=== PATIENT | male | born 1985 | race Caucasian/White ===

== ENCOUNTER 2016-07-14 11:28 | Emergency (ER) | payer OTHER ==
--- NOTE | 2016-07-14 13:17 | ED NURSING NOTES ---
Clinical Report - Nurses [facility] [place] [address] 07/14/2016 11:30 Patient: PAULINA FRANKS TRIAGE Triage time 11:39. Acuity: LEVEL 3. Chief Complaint: PAIN WITH URINATION and (right flank pain). --11:42 Meche Osman R.N. 11:39 07/14/16. BP: 136/87. HR: 87. RR: 20. O2 saturation: 98%. Temp: 98.3 F. Pain level now: 02/02. --11:42 Meche Osman R.N. Weight: 117.9 kg stated. Height/Length: 73 inches Per Patient. BMI: 34.3. --11:42 Meche Osman R.N. Medications None. --11:41 Meche Osman R.N. Allergies No Known Drug Allergy. --11:41 Meche Osman R.N. History Primary physician (ashley). ( sometimes stings with urination. Hx of kidey stones). PAST MEDICAL HX: ( kidney stone). SOCIAL HX: Smoker- current status unknown (quit 3 months ago). No alcohol use or drug use. FALL RISK ASSESSMENT: Fall risk assessment completed. No fall risk identified. NUTRITIONAL RISK ASSESSMENT: The nutritional risk assessment revealed no deficiencies. FUNCTIONAL ASSESSMENT: Functional assessment: no impairments noted. LEARNING NEEDS ASSESSMENT: The learning needs assessment revealed no barriers. SKIN INTEGRITY ASSESSMENT: Skin integrity risk assessment completed. No skin integrity risk identified. --11:42 Meche Osman R.N. PROBLEMS: Kidney stones. --11:41 Meche Osman R.N. Interventions ID band on patient. To treatment room. --11:42 Meche Osman R.N. PHYSICAL ASSESSMENT GENERAL / NEURO / PSYCH: Alert. Oriented X 4. Appears in no acute distress. RESPIRATORY: Respirations not labored. CVS: Capillary refill less than 2 seconds. GI / : Abdomen soft and nontender. Bowel sounds within normal limits. SKIN: Skin is warm and dry. --12:23 Meche Osman R.N. NURSING PROGRESS NOTES Oxygen administered. Reassurance given. Patient identifiers checked. Call light placed in reach. Side rails up. Bed placed in lowest position. ( pt resting quietly, states pain is subsiding. No needs at this time. call light within reach.). --12:22 Meche Osman R.N. 12:21 07/14/16. BP: 142/90. HR: 81. RR: 18. O2 saturation: 99%. Pain level now: 11/02. --12:22 Meche Osman R.N. 11:59 07/14/2016 Site #1 started via IV in the left antecubital space with an 20g angiocath; one attempt. Saline lock flushed with 10 mL saline. --12:24 Meche Osman R.N. 12:00 07/14/2016 Zofran (Ondansetron HCl) IVP 4 mg given over 2 minute(s) via site #1. --12:24 Meche Osman R.N. 12:00 07/14/2016 Toradol IVP 30 mg given over 5 minute(s) via site #1. --12:25 Meche Osman R.N. 13:39 07/14/2016 Dilaudid (HYDROmorphone HCl PF) IVP 1 mg given over 2 minute(s) via site #1. Allergies verified, confirmed 5 rights and sedative warning given to the patient. IV patency established. IV site checked: no pain, redness, or swelling. IV flushed thoroughly pre- and post-medication administration (pt advised he would need a ride home and would not be able to drive.). --13:40 Meche Osman R.N. 12:30- pt resting quietly. call light in reach. --13:43 Meche Osman R.N. 13:43 07/14/16. BP: 113/72. HR: 79. RR: 16. Pain level now: 01/02. --13:44 Meche Osman R.N. ( pt reports pain is returning. New order given, dilaudid 1 mg IV). --13:44 Meche Osman R.N. 13:50 07/14/2016 Site #1 removed upon discharge. Pressure dressing applied. --13:50 Meche Osman R.N. DISPOSITION / DISCHARGE Condition at departure: improved. No learning barriers present. Reviewed medication(s) side effects, precautions, dosing and course information. Prescription(s) given to the patient. Work note given. Patient verbalized understanding. Written instructions provided in Indonesian. The patient was discharged home and accompanied by display card writer. He left the Emergency Department ambulatory and via private vehicle. Cpht driving. Medication list reviewed and validated. --14:21 Lee nAn Green R.N. 14:20 07/14/16. BP: 120/79. HR: 78. RR: 20. O2 saturation: 100%. Temp: deferred. Pain level now: 10/03. 13:43 07/14/16. BP: 113/72. HR: 79. RR: 16. Pain level now: 01/02. 12:21 07/14/16. BP: 142/90. HR: 81. RR: 18. O2 saturation: 99%. Pain level now: 11/02. 11:39 07/14/16. BP: 136/87. HR: 87. RR: 20. O2 saturation: 98%. Temp: 98.3 F. Pain level now: 02/02. --14:21 Lee Ann Green R.N. Locked/Released at 07/14/2016 14:22 by Lee Ann Green R.N.
--- NOTE | 2016-07-14 13:17 | ED NURSING NOTES ---
Clinical Report - Nurses [facility] [place] [address] 07/14/2016 11:30 Patient: PAULINA FRANKS TRIAGE Triage time 11:39. Acuity: LEVEL 3. Chief Complaint: PAIN WITH URINATION and (right flank pain). --11:42 Meche Osman R.N. 11:39 07/14/16. BP: 136/87. HR: 87. RR: 20. O2 saturation: 98%. Temp: 98.3 F. Pain level now: 02/02. --11:42 Meche Osman R.N. Weight: 117.9 kg stated. Height/Length: 73 inches Per Patient. BMI: 34.3. --11:42 Meche Osman R.N. Medications None. --11:41 Meche Osman R.N. Allergies No Known Drug Allergy. --11:41 Meche Osman R.N. History Primary physician (ashley). ( sometimes stings with urination. Hx of kidey stones). PAST MEDICAL HX: ( kidney stone). SOCIAL HX: Smoker- current status unknown (quit 3 months ago). No alcohol use or drug use. FALL RISK ASSESSMENT: Fall risk assessment completed. No fall risk identified. NUTRITIONAL RISK ASSESSMENT: The nutritional risk assessment revealed no deficiencies. FUNCTIONAL ASSESSMENT: Functional assessment: no impairments noted. LEARNING NEEDS ASSESSMENT: The learning needs assessment revealed no barriers. SKIN INTEGRITY ASSESSMENT: Skin integrity risk assessment completed. No skin integrity risk identified. --11:42 Meche Osman R.N. PROBLEMS: Kidney stones. --11:41 Meche Osman R.N. Interventions ID band on patient. To treatment room. --11:42 Meche Osman R.N. PHYSICAL ASSESSMENT GENERAL / NEURO / PSYCH: Alert. Oriented X 4. Appears in no acute distress. RESPIRATORY: Respirations not labored. CVS: Capillary refill less than 2 seconds. GI / : Abdomen soft and nontender. Bowel sounds within normal limits. SKIN: Skin is warm and dry. --12:23 Meche Osman R.N. NURSING PROGRESS NOTES Oxygen administered. Reassurance given. Patient identifiers checked. Call light placed in reach. Side rails up. Bed placed in lowest position. ( pt resting quietly, states pain is subsiding. No needs at this time. call light within reach.). --12:22 Meche Osman R.N. 12:21 07/14/16. BP: 142/90. HR: 81. RR: 18. O2 saturation: 99%. Pain level now: 11/02. --12:22 Meche Osman R.N. 11:59 07/14/2016 Site #1 started via IV in the left antecubital space with an 20g angiocath; one attempt. Saline lock flushed with 10 mL saline. --12:24 Meche Osman R.N. 12:00 07/14/2016 Zofran (Ondansetron HCl) IVP 4 mg given over 2 minute(s) via site #1. --12:24 Meche Osman R.N. 12:00 07/14/2016 Toradol IVP 30 mg given over 5 minute(s) via site #1. --12:25 Meche Osman R.N. 13:39 07/14/2016 Dilaudid (HYDROmorphone HCl PF) IVP 1 mg given over 2 minute(s) via site #1. Allergies verified, confirmed 5 rights and sedative warning given to the patient. IV patency established. IV site checked: no pain, redness, or swelling. IV flushed thoroughly pre- and post-medication administration (pt advised he would need a ride home and would not be able to drive.). --13:40 Meche Osman R.N. 12:30- pt resting quietly. call light in reach. --13:43 Meche Osman R.N. 13:43 07/14/16. BP: 113/72. HR: 79. RR: 16. Pain level now: 01/02. --13:44 Meche Osman R.N. ( pt reports pain is returning. New order given, dilaudid 1 mg IV). --13:44 Meche Osman R.N. 13:50 07/14/2016 Site #1 removed upon discharge. Pressure dressing applied. --13:50 Meche Osman R.N. DISPOSITION / DISCHARGE Condition at departure: improved. No learning barriers present. Reviewed medication(s) side effects, precautions, dosing and course information. Prescription(s) given to the patient. Work note given. Patient verbalized understanding. Written instructions provided in Urdu. The patient was discharged home and accompanied by glass inspector. He left the Emergency Department ambulatory and via private vehicle. Scientific Programmer Analyst driving. Medication list reviewed and validated. --14:21 Lee Ann Green R.N. 14:20 07/14/16. BP: 120/79. HR: 78. RR: 20. O2 saturation: 100%. Temp: deferred. Pain level now: 10/03. 13:43 07/14/16. BP: 113/72. HR: 79. RR: 16. Pain level now: 01/02. 12:21 07/14/16. BP: 142/90. HR: 81. RR: 18. O2 saturation: 99%. Pain level now: 11/02. 11:39 07/14/16. BP: 136/87. HR: 87. RR: 20. O2 saturation: 98%. Temp: 98.3 F. Pain level now: 02/02. --14:21 Lee Ann Green R.N. Locked/Released at 07/14/2016 14:22 by Lee Ann Green R.N.
--- NOTE | 2016-07-14 13:17 | ED ORDER SUMMARY ---
..... Patient: PAULINA FRANKS OrderSheet [facility] VisitID: [id number] [place] [address] 31y, M Registration Date/Time: 07/14/2016 ORDER SHEET Weight: 117.9 kg (stated) Allergies: No Known Drug Allergy GENERAL ORDERS: UA-Culture if indicated Urgent (11:38 07/14/2016 SStone R.N. per protocol) (Ack 11:45 LTapper) (14:21 SRoberts R.N.) Urine Drug Screen Urgent (11:44 07/14/2016 [facility]) (Ack 11:50 LTapper) (14:21 SRoberts R.N.) CBC wo Diff Urgent (11:44 07/14/2016 [facility]) (Ack 11:50 LTapper) (14:21 SRoberts R.N.) CMP Urgent (11:44 07/14/2016 [facility]) (Ack 11:50 LTapper) (14:21 SRoberts R.N.) MEDICATION ORDERS: IV FLUIDS: IV NS : initial bolus 1000 mL (1000 mL/hr), then 500 mL/hr for X2 (NOW) (11:44 07/14/2016 [facility]) (Ack 12:15 SStone R.N.) Zofran IV 4 mg (NOW) (12:23 07/14/2016 SStone R.N. verbal order read back to [facility]) (12:24 SStone R.N.) Toradol IV 30 mg (NOW) (12:23 07/14/2016 SStone R.N. verbal order read back to [facility]) (12:25 SStone R.N.) Dilaudid IV 1 mg (NOW) (13:34 07/14/2016 [facility]) (13:40 SStone R.N.) ORDER SHEET NOTES: [Electronically signed by Lee Ann Green R.N. (14:22 07/14/2016)] [Electronically signed by Ahmet Pak DO (11:08 07/15/2016)] [Electronically locked/signed by Lee Ann Green R.N. (14:22 07/14/2016)]
--- NOTE | 2016-07-14 13:17 | ED ORDER SUMMARY ---
..... Patient: PAULINA FRANKS OrderSheet [facility] VisitID: [id number] [place] [address] 31y, M Registration Date/Time: 07/14/2016 ORDER SHEET Weight: 117.9 kg (stated) Allergies: No Known Drug Allergy GENERAL ORDERS: UA-Culture if indicated Urgent (11:38 07/14/2016 SStone R.N. per protocol) (Ack 11:45 LTapper) (14:21 SRoberts R.N.) Urine Drug Screen Urgent (11:44 07/14/2016 [facility]) (Ack 11:50 LTapper) (14:21 SRoberts R.N.) CBC wo Diff Urgent (11:44 07/14/2016 [facility]) (Ack 11:50 LTapper) (14:21 SRoberts R.N.) CMP Urgent (11:44 07/14/2016 [facility]) (Ack 11:50 LTapper) (14:21 SRoberts R.N.) MEDICATION ORDERS: IV FLUIDS: IV NS : initial bolus 1000 mL (1000 mL/hr), then 500 mL/hr for X2 (NOW) (11:44 07/14/2016 [facility]) (Ack 12:15 SStone R.N.) Zofran IV 4 mg (NOW) (12:23 07/14/2016 SStone R.N. verbal order read back to [facility]) (12:24 SStone R.N.) Toradol IV 30 mg (NOW) (12:23 07/14/2016 SStone R.N. verbal order read back to [facility]) (12:25 SStone R.N.) Dilaudid IV 1 mg (NOW) (13:34 07/14/2016 [facility]) (13:40 SStone R.N.) ORDER SHEET NOTES: [Electronically signed by Lee Ann Green R.N. (14:22 07/14/2016)] [Electronically signed by Ahmet Pak DO (11:08 07/15/2016)] [Electronically locked/signed by Lee Ann Green R.N. (14:22 07/14/2016)]
--- NOTE | 2016-07-14 13:17 | ED CLINICAL REPORT ---
Clinical Report - Physicians/Mid Levels [facility] [address] [place] [place] [address] 07/14/2016 11:30 Patient: PAULINA FRANKS Time Seen: 11:44. Arrived- By private vehicle. Historian- patient. HISTORY OF PRESENT ILLNESS Chief Complaint: FLANK PAIN. At its maximum, severity described as severe. When seen in the E.D., severity described as moderate. This started yesterday and is still present. It was gradual in onset and has been waxing/waning. It is described as "pain" and sharp and it is described as located in the right flank and radiating to the right lower quadrant of the abdomen, right pelvis, right groin and right testicle. The patient has had nausea. No vomiting or diarrhea. Similar symptoms previously: Several times. Diagnosis: kidney stone. Recent medical care: Not recently seen/assessed. REVIEW OF SYSTEMS No constipation, black stools, hematemesis, fever or headache. No sore throat, chest pain or difficulty breathing. He has had pain on urination and back pain (right flank). The patient has had urinary frequency. All systems otherwise negative, except as recorded above. PAST HISTORY See nurses notes. Has had urinary calculi. PCP: Dr Brantley. No history of hypertension or diabetes mellitus. Surgeries: No history of previous surgery. SOCIAL HISTORY Former smoker, end date 03/2016. No alcohol use or drug use. ADDITIONAL NOTES The nursing notes have been reviewed. PHYSICAL EXAM Vital Signs: 07/14/2016 11:39 BP: 136/87. HR: 87. RR: 20. O2 saturation: 98%. Temp: 98.3 F. Pain level now: 8/10. Appearance: Alert. Oriented X3. Patient in moderate distress. Eyes: Eyes normal inspection. No scleral icterus or pale conjunctivae. ENT: Pharynx normal. No pharyngeal erythema or tonsillar exudate. The mucous membranes are not dry. Neck: Normal inspection. Neck supple. CVS: Normal heart rate and rhythm. Heart sounds normal. Pulses normal. Respiratory: No respiratory distress. Breath sounds normal. Abdomen: Soft and nontender. No organomegaly. No mass. Back: Normal inspection. Mild CVA tenderness on the right. : Normal genitalia. Testes descended. Mild tenderness of the right testicle and left testicle. No scrotal swelling. Skin: Skin warm and dry. Normal skin color. No rash. Normal skin turgor. Extremities: Extremities exhibit normal ROM. No lower extremity edema. Neuro: Oriented X 3. No motor deficit. No sensory deficit. LABS, X-RAYS, AND EKG Laboratory Tests: UA-Culture if indicated: (YURI: 07/14/2016 11:45) ( MegRcvd 07/14/2016 12:08) Final results Test Result Flag Units (Reference) URINE COLOR YELLOW URINE APPEARANCE SL CLOUDY URINE GLUCOSE NEGATIVE (NEGATIVE) URINE BILIRUBIN NEGATIVE (NEGATIVE) URINE KETONE NEGATIVE (NEGATIVE) URINE SPECIFIC GRAVITY 1.015 (1.010-1.030) URINE PH 7.0 (5.0-8.0) URINE PROTEIN NEGATIVE (NEGATIVE) URINE UROBILINOGEN 0.2 EU/dL (0.2-1.0) URINE NITRITE NEGATIVE (NEGATIVE) URINE BLOOD 3+ (NEGATIVE) URINE LEUK ESTERASE NEGATIVE (NEGATIVE) URINE RBC >100 rbc/hpf (0-1) URINE WBC 0-1 wbc/hpf (0-1) URINE EPITHELIAL CELLS RARE EPI/hpf (0-5) URINE BACTERIA NONE SEEN (NONE SEEN) URINE COMMENT CULT NOT INDICATED URINE CULTURES ARE SET-UP BASED ON THE FOLLOWING CRITERIA:POSITIVE NITRITEPOSITIVE LEUKOCYTE ESTERASEGREATER THAN 10 WHITE BLOOD CELLSMODERATE (2+) OR GREATER BACTERIA CBC wo Diff: (YURI: 07/14/2016 11:55) ( [facility] 07/14/2016 12:04) Final results Test Result Flag Units (Reference) WHITE BLOOD COUNT NO REFLEX 7.7 K/uL (4.5-11.5) RED BLOOD COUNT 5.31 M/uL (4.50-5.90) HEMOGLOBIN 15.9 gm/dL (13.5-17.5) HEMATOCRIT 48.1 % (41.0-53.0) MEAN CELL VOLUME 91 fL (80-100) MEAN CORPUSCULAR HGB 30 pg (26-34) MEAN CORPUSCULAR HGB CONC 33 g/dL (31-37) RED CELL DISTRIBUTION WIDTH 12.9 % (11.6-14.8) PLATELET COUNT 224 K/uL (150-400) Urine Drug Screen: (YURI: 07/14/2016 11:45) ( MsgRcvd 07/14/2016 13:13) Final results Test Result Flag Units (Reference) AMPHETAMINE/METHAMPHETAMINE NEGATIVE (NEGATIVE) BARBITURATE NEGATIVE (NEGATIVE) BENZODIAZEPINE NEGATIVE (NEGATIVE) CANNABINOID POSITIVE H (NEGATIVE) COCAINE NEGATIVE (NEGATIVE) ECSTASY NEGATIVE (NEGATIVE) METHADONE NEGATIVE (NEGATIVE) OPIATE NEGATIVE (NEGATIVE) FAXED This is a corrected result 07/14/16 1313:OPI previously reported as: NEGATIVEThe urine drug screen is a qualitative screening test fordrug overdose and abuse. All screen results should beconsidered as presumptive.Drugs screened for are as follows:BenzodiazepinesCocaineAmphetamines/MetamphetaminesTHC (Tetrahydrocannabinol)OpiatesBarbituratesEcstasyMethadonePositive results are unconfirmed. For confirmation, notifythe lab for the specimen to be sent to the reference lab.All confirmations must be performed by a differentmethodology.The ingestion of natural herbal and plant productscontaining Ephedra/Ephedra metabolites can produce in urineone or more substances capable of cross reacting withamphetamine/methamphetamine immunoassays. These testsprovide a preliminary result only. A more specificalternative chemical method must be used to obtain aconfirmed analytical result. CMP: (YURI: 07/14/2016 11:55) ( MsgRcvd 07/14/2016 12:21) Final results Test Result Flag Units (Reference) GLUCOSE 102 mg/dL (70-110) BUN 15 mg/dL (7-18) CREATININE 0.9 mg/dL (0.6-1.3) Estimated GFR >60 mL/min Estimated GFR- >60 mL/min Note: Persistent reduction over 3 months in eGFR<60 mL/min/1.73 m2 defines CKD. Patients with eGFR values>=60 mL/min/1.73 m2 may also have CKD if evidence ofpersistent proteinuria. Additional information may be foundat www.kidney.org. SODIUM 141 mmol/L (136-145) POTASSIUM 4.3 mmol/L (3.5-5.1) CHLORIDE 104 mmol/L (98-107) CARBON DIOXIDE 30 mmol/L (21-32) CALCIUM 8.7 mg/dL (8.5-10.1) TOTAL PROTEIN 7.5 g/dL (6.4-8.2) ALBUMIN 4.4 g/dL (3.3-5.0) BILIRUBIN, TOTAL 0.6 mg/dL (0.0-1.0) ALKALINE PHOSPHATASE 61 U/L (46-116) AST (SGOT) 50 H U/L (15-37) ALT (SGPT) 151 H U/L (12-78) . Pulse Oximetry: 07/14/2016 14:20 O2 saturation: 100%. (FIO2 - room air). Interpretation: normal. PROGRESS AND PROCEDURES Course of Care: Normal Saline 1 liter IVPB given. Toradol 30 mg IVP given. Zofran 4 mg IVP given. Patient is stable. Physical exam findings are improved. Symptoms much better. All c/w ureterolithiasis. I will hold CT per Choosing Wisely guidelines. Patient/family counseled. Disposition: Discharged. Condition: stable and improved. CLINICAL IMPRESSION Ureterolithiasis (single stone) in the right ureter with renal colic. No acute pyelonephritis. Occasional substance abuse- marijuana. No intoxication, hallucinations, anxiety or drug induced mood disorder. Abnormal liver function test: AST/SGOT and ALT/SGPT (mild elevation). Moderate obesity (BMI 30.0 - 34.9) due to excess calories. INSTRUCTIONS Do not work for three days. Drink plenty of fluids. No alcohol until released. Warnings: Further evaluation is necessary in order to recheck abnormal lab, conduct further tests and assess the possibility of serious illness. It is very important to follow up with a physician. SEDATIVE MEDICATION: You were given sedative medication during your visit. Do not drive or operate dangerous machinery. CONTROLLED SUBSTANCE WARNINGS. GENERAL WARNINGS: Return or contact your physician immediately if your condition worsens or changes unexpectedly, if not improving as expected, or if other problems arise. Prescription Medications: Zofran (orally disintegrating tablets) 4 mg: take 1-2 orally every 8 hours as needed for nausea and vomiting. Dispense ten (10). No refill. Substitution is permissible. Oxycodone/APAP 5 mg/325 mg: take 1 tablet orally every 6 hours as needed for pain. Dispense fifteen (15). No refills. Flomax 0.4 mg: take 1 orally every 24 hours. Dispense fifteen (15). No refills. Substitution is permissible. Follow-up: Follow up with your doctor tomorrow. Follow up with a urologist- as recommended by your primary care physician- in about two days. (Electronically signed by Ahmet Pak DO 07/15/2016 11:08)
--- NOTE | 2016-07-15 11:09 | ED DISCHARGE INSTRUCTIONS ---
Patient: PAULINA FRANKS General Instructions [facility] VisitID: [id number] [place] [address] 31y, M Registration Date/Time: 07/14/2016 Ureterolithiasis (single stone) in the right ureter with renal colic. No acute pyelonephritis. Occasional substance abuse- marijuana. No intoxication, hallucinations, anxiety or drug induced mood disorder. Abnormal liver function test: AST/SGOT and ALT/SGPT (mild elevation). Moderate obesity (BMI 30.0 - 34.9) due to excess calories. INSTRUCTIONS Do not work for three days. Drink plenty of fluids. No alcohol until released. Warnings: Further evaluation is necessary in order to recheck abnormal lab, conduct further tests and assess the possibility of serious illness. It is very important to follow up with a physician. SEDATIVE MEDICATION: You were given sedative medication during your visit. Do not drive or operate dangerous machinery. CONTROLLED SUBSTANCE WARNINGS. GENERAL WARNINGS: Return or contact your physician immediately if your condition worsens or changes unexpectedly, if not improving as expected, or if other problems arise. Prescription Medications: Zofran (orally disintegrating tablets) 4 mg: take 1-2 orally every 8 hours as needed for nausea and vomiting. Dispense ten (10). No refill. Substitution is permissible. Oxycodone/APAP 5 mg/325 mg: take 1 tablet orally every 6 hours as needed for pain. Dispense fifteen (15). No refills. Flomax 0.4 mg: take 1 orally every 24 hours. Dispense fifteen (15). No refills. Substitution is permissible. Follow-up: Follow up with your doctor tomorrow. Follow up with a urologist- as recommended by your primary care physician- in about two days. ADDITIONAL INFORMATION Kidney Stone (W/ Colic) The sharp cramping pain and nausea/vomiting that you have is due to a small stone which has formed in the kidney and is now passing down a narrow tube (ureter) on its way to your bladder. Once it reaches your bladder, the pain will stop. The stone may pass in your urine stream in one piece. [The size may be 1/16" to 1/4" (1-6mm)]. Or, the stone may also break up into tosin fragments which you may not even notice. Once you have had a kidney stone, you are at risk for developing another one in the future. Home Care: Drink plenty of fluids (at least 8 to 10 glasses of water a day). Most stones will pass on their own, but may take from a few hours to a few days. Sometimes the stone is too large to pass by itself and special methods will have to be used to remove the stone. Each time you urinate, do so in a jar. Pour the urine from the jar through the strainer and into the toilet. Continue doing this until 24 hours after your pain stops. By then, if there was a kidney stone, it should pass from your bladder. Some stones dissolve into sand-like particles and pass right through the strainer. In that case, you wont ever see a stone. Save any stone that you find in the strainer and bring it to your doctor for analysis. It may be possible to prevent certain types of stones from forming. Therefore, it is important to know what kind of stone you have. Try to stay as active as possible since this will help the stone pass. Do not stay in bed unless your pain prevents you from getting up. You may notice a red, pink or brown color to your urine. This is normal while passing a kidney stone. Follow Up with your doctor or return to this facility if the pain lasts more than 48 hours. Get Prompt Medical Attention if any of the following occur: Pain that is not controlled by the medicine given Repeated vomiting or unable to keep down fluids Weakness, dizziness or fainting Fever of 100.4F (38C) or higher, or as directed by your healthcare provider Passage of solid red or brown urine (can't see through it) or urine with lots of blood clots Unable to pass urine for 8 hours and increasing bladder pressure Marijuana Abuse Marijuana is the most widely used illegal drug in the [place]. It is called by various names such as pot, weed, blunts, grass, reefer, ganja, hash, hashish. It is usually smoked but can be mixed with foods or brewed as a tea. It is sometimes sold with PCP (Andriy Dust) or amphetamine mixed in it. These drugs can cause other harmful side effects. Marijuana can cause the following effects: Changes in mood (stimulated, happy, drowsy, depressed, paranoid) Hallucinations Increased heart rate and blood pressure Increased appetite Time distortion, difficulty concentrating, impaired memory Lung damage (similar to cigarettes with chronic cough, wheezing, frequent colds and bronchitis) You can become psychologically dependent on marijuana. That means the craving to use the drug is emotional or psychological rather than due to physical withdrawal. Is Marijuana Running Your Life? Here are some of the signs: Relying on marijuana to feel good, forget problems, deal with stress or to relax Wanting to be alone most of the time or only with others who use drugs Losing interest in things that used to be important Changes in school or job performance or attendance Spending a lot of time thinking about how to get marijuana Stealing or selling your things so you can buy marijuana Unable to stop using even though you may want to quit Increasing anxiety, anger,or depression Sleeping too much, changes in eating habits (weight loss or gain) Needing to use more to get the same effect Home Care Once you have become addicted to any drug, quitting is hard to do. Most people find they can't quit without help. So, dont try to do this alone. Talk to someone you trust who can support you. Seek professional help. Avoid people and places where drugs are used. That only increases the temptation to use. Follow Up with your doctor or as advised by our staff. For more information or a referral to a treatment center in your area, contact: Your local mental health center or the National Alcohol and Substance Abuse Information Center (445)-190-3487 www.addictioncareServoyantions.com National [place] on Alcoholism and Drug Dependence 987-285-LUEY www.ncadd.org Marijuana Anonymous 749-793-4078 www.marijuana-anonymous.org Get Prompt Medical Attention if any of the following occur: You feel extreme depression, fear, anxiety, or anger toward yourself or others You feel out of control You feel that you may try to harm yourself or another Ondansetron Oral disintegrating tablet What is this medicine? ONDANSETRON (on JAZMINE se yani) is used to treat nausea and vomiting caused by chemotherapy. It is also used to prevent or treat nausea and vomiting after surgery. How should I use this medicine? These tablets are made to dissolve in the mouth. Do not try to push the tablet through the foil backing. With dry hands, peel away the foil backing and gently remove the tablet. Place the tablet in the mouth and allow it to dissolve, then swallow. While you may take these tablets with water, it is not necessary to do so. Talk to your pole inspector regarding the use of this medicine in children. Special care may be needed. What side effects may I notice from receiving this medicine? Side effects that you should report to your doctor or health insurance healthcare representative as soon as possible: allergic reactions like skin rash, itching or hives, swelling of the face, lips, or tongue breathing problems dizziness fast or irregular heartbeat feeling faint or lightheaded, falls fever and chills swelling of the hands and feet tightness in the chest Side effects that usually do not require medical attention (report to your doctor or health insurance healthcare representative if they continue or are bothersome): constipation or diarrhea headache What may interact with this medicine? Do not take this medicine with any of the following medications: -apomorphine -cisapride -dofetilide -dronedarone -pimozide -thioridazine -ziprasidone This medicine may also interact with the following medications: -carbamazepine -phenytoin -rifampicin -tramadol -other medicines that prolong the QT interval (cause an abnormal heart rhythm) What if I miss a dose? If you miss a dose, take it as soon as you can. If it is almost time for your next dose, take only that dose. Do not take double or extra doses. Where should I keep my medicine? Keep out of the reach of children. Store between 2 and 30 degrees C (36 and 86 degrees F). Throw away any unused medicine after the expiration date. What should I tell my health care provider before I take this medicine? They need to know if you have any of these conditions: heart disease history of irregular heartbeat liver disease low levels of magnesium or potassium in the blood an unusual or allergic reaction to ondansetron, granisetron, other medicines, foods, dyes, or preservatives or trying to get breast-feeding What should I watch for while using this medicine? Check with your doctor or health insurance healthcare representative as soon as you can if you have any sign of an allergic reaction. Oxycodone Hydrochloride, Acetaminophen Oral tablet What is this medicine? ACETAMINOPHEN; OXYCODONE (a set a YUNIEL augustina fen; ox i KOE done) is a pain reliever. It is used to treat mild to moderate pain. How should I use this medicine? Take this medicine by mouth with a full glass of water. Follow the directions on the prescription label. Take your medicine at regular intervals. Do not take your medicine more often than directed. Talk to your pole inspector regarding the use of this medicine in children. Special care may be needed. Patients over 65 years old may have a stronger reaction and need a smaller dose. What side effects may I notice from receiving this medicine? Side effects that you should report to your doctor or health insurance healthcare representative as soon as possible: allergic reactions like skin rash, itching or hives, swelling of the face, lips, or tongue breathing difficulties, wheezing confusion light headedness or fainting spells severe stomach pain yellowing of the skin or the whites of the eyes Side effects that usually do not require medical attention (report to your doctor or health insurance healthcare representative if they continue or are bothersome): dizziness drowsiness nausea vomiting What may interact with this medicine? alcohol antihistamines barbiturates like amobarbital, butalbital, butabarbital, methohexital, pentobarbital, phenobarbital, thiopental, and secobarbital benztropine drugs for bladder problems like solifenacin, trospium, oxybutynin, tolterodine, hyoscyamine, and methscopolamine drugs for breathing problems like ipratropium and tiotropium drugs for certain stomach or intestine problems like propantheline, homatropine methylbromide, glycopyrrolate, atropine, belladonna, and dicyclomine general anesthetics like etomidate, ketamine, nitrous oxide, propofol, desflurane, enflurane, halothane, isoflurane, and sevoflurane medicines for depression, anxiety, or psychotic disturbances medicines for sleep muscle relaxants naltrexone narcotic medicines (opiates) for pain phenothiazines like perphenazine, thioridazine, chlorpromazine, mesoridazine, fluphenazine, prochlorperazine, promazine, and trifluoperazine scopolamine tramadol trihexyphenidyl What if I miss a dose? If you miss a dose, take it as soon as you can. If it is almost time for your next dose, take only that dose. Do not take double or extra doses. Where should I keep my medicine? Keep out of the reach of children. This medicine can be abused. Keep your medicine in a safe place to protect it from theft. Do not share this medicine with anyone. Selling or giving away this medicine is dangerous and against the law. Store at room temperature between 20 and 25 degrees C (68 and 77 degrees F). Keep container tightly closed. Protect from light. This medicine may cause accidental overdose and if it is taken by other adults, children, or pets. Flush any unused medicine down the toilet to reduce the chance of harm. Do not use the medicine after the expiration date. What should I tell my health care provider before I take this medicine? They need to know if you have any of these conditions: brain tumor Crohn's disease, inflammatory bowel disease, or ulcerative colitis drink more than 3 alcohol containing drinks per day drug abuse or addiction head injury heart or circulation problems kidney disease or problems going to the bathroom liver disease lung disease, asthma, or breathing problems an unusual or allergic reaction to acetaminophen, oxycodone, other opioid analgesics, other medicines, foods, dyes, or preservatives or trying to get breast-feeding What should I watch for while using this medicine? Tell your doctor or health insurance healthcare representative if your pain does not go away, if it gets worse, or if you have new or a different type of pain. You may develop tolerance to the medicine. Tolerance means that you will need a higher dose of the medication for pain relief. Tolerance is normal and is expected if you take this medicine for a long time. Do not suddenly stop taking your medicine because you may develop a severe reaction. Your body becomes used to the medicine. This does NOT mean you are addicted. Addiction is a behavior related to getting and using a drug for a non-medical reason. If you have pain, you have a medical reason to take pain medicine. Your doctor will tell you how much medicine to take. If your doctor wants you to stop the medicine, the dose will be slowly lowered over time to avoid any side effects. You may get drowsy or dizzy. Do not drive, use machinery, or do anything that needs mental alertness until you know how this medicine affects you. Do not stand or sit up quickly, especially if you are an older patient. This reduces the risk of dizzy or fainting spells. Alcohol may interfere with the effect of this medicine. Avoid alcoholic drinks. There are different types of narcotic medicines (opiates) for pain. If you take more than one type at the same time, you may have more side effects. Give your health care provider a list of all medicines you use. Your doctor will tell you how much medicine to take. Do not take more medicine than directed. Call emergency for help if you have problems breathing. The medicine will cause constipation. Try to have a bowel movement at least every 2 to 3 days. If you do not have a bowel movement for 3 days, call your doctor or health insurance healthcare representative. Do not take Tylenol (acetaminophen) or medicines that have acetaminophen with this medicine. Too much acetaminophen can be very dangerous. Many nonprescription medicines contain acetaminophen. Always read the labels carefully to avoid taking more acetaminophen. You have been given the following additional information: Kidney Stone W/ Colic Marijuana Abuse Ondansetron Oral disintegrating tablet Oxycodone Hydrochloride, Acetaminophen Oral tablet Do not work for three days. (Electronically signed by Ahmet Pak DO 07/15/2016 11:08)
--- NOTE | 2016-07-15 11:09 | ED MAR SUMMARY ---
..... Medication Administration Record [facility] [address] [place] [place] [address] Patient: PAULINA FRANKS Visit ID: [id number] 31y, M Weight: 117.9 kg Height/Length: 73 in BMI: 34.3 ALLERGIES: No Known Drug Allergy Given 12:07/14/2016 Meche Osman R.N. Medication Administered: ZOFRAN [IVP] (ONDANSETRON HCL), Dose: 4 mg IVP over 2 minute(s), Site: #1 left AC. Medication Ordered: Zofran IV 4 mg (NOW). Given 12:00 07/14/2016 Meche Osman R.N. Medication Administered: TORADOL [IVP], Dose: 30 mg IVP over 5 minute(s), Site: #1 left AC. Medication Ordered: Toradol IV 30 mg (NOW). Given 13:39 07/14/2016 Meche Osman R.N. Medication Administered: DILAUDID [IVP] (HYDROMORPHONE HCL PF), Dose: 1 mg IVP over 2 minute(s), Site: #1 left AC. Medication Ordered: Dilaudid IV 1 mg (NOW).
--- NOTE | 2016-07-15 11:09 | ED MAR SUMMARY ---
..... Medication Administration Record [facility] [address] [place] [place] [address] Patient: PAULINA FRANKS Visit ID: [id number] 31y, M Weight: 117.9 kg Height/Length: 73 in BMI: 34.3 ALLERGIES: No Known Drug Allergy Given 12:07/14/2016 Meceh Osman R.N. Medication Administered: ZOFRAN [IVP] (ONDANSETRON HCL), Dose: 4 mg IVP over 2 minute(s), Site: #1 left AC. Medication Ordered: Zofran IV 4 mg (NOW). Given 12:00 07/14/2016 Meche Osman R.N. Medication Administered: TORADOL [IVP], Dose: 30 mg IVP over 5 minute(s), Site: #1 left AC. Medication Ordered: Toradol IV 30 mg (NOW). Given 13:39 07/14/2016 Meche Osman R.N. Medication Administered: DILAUDID [IVP] (HYDROMORPHONE HCL PF), Dose: 1 mg IVP over 2 minute(s), Site: #1 left AC. Medication Ordered: Dilaudid IV 1 mg (NOW).
--- NOTE | 2016-07-15 11:09 | ED MED RECONCILIATION SUMMARY ---
Patient: PAULINA FRANKS Medication Reconciliation Report [facility] VisitID: [id number] [address] [place] [address] 31y, M Registration Date/Time: 07/14/2016 Weight: 117.9 kg Height/Length: 73 in. BMI: 34.3 ALLERGIES: No Known Drug Allergy The patient's Home Medications are listed below: NONE. The source(s) of the original Home Medication information: Not obtained. The following Medications were given to the patient in the Emergency Department: Zofran [IVP] IVP 4 mg, administered: 07/14/2016 12:00:00 PM Toradol [IVP] IVP 30 mg, administered: 07/14/2016 12:00:00 PM Dilaudid [IVP] IVP 1 mg, administered: 07/14/2016 1:39:00 PM The following Medications were prescribed to the patient: Zofran (orally disintegrating tablets) 4 mg: take 1-2 orally every 8 hours as needed for nausea and vomiting. Dispense ten (10). No refill. Substitution is permissible. -- Ahmet Pak DO Oxycodone/APAP 5 mg/325 mg: take 1 tablet orally every 6 hours as needed for pain. Dispense fifteen (15). No refills. -- Ahmet Pak DO Flomax 0.4 mg: take 1 orally every 24 hours. Dispense fifteen (15). No refills. Substitution is permissible. -- Ahmet Pak DO
--- NOTE | 2016-07-15 11:09 | ED MED RECONCILIATION SUMMARY ---
Patient: PAULINA FRAKNS Medication Reconciliation Report [facility] VisitID: [id number] [address] [address] 31y, M Registration Date/Time: 07/14/2016 Weight: 117.9 kg Height/Length: 73 in. BMI: 34.3 ALLERGIES: No Known Drug Allergy The patient's Home Medications are listed below: NONE. The source(s) of the original Home Medication information: Not obtained. The following Medications were given to the patient in the Emergency Department: Zofran [IVP] IVP 4 mg, administered: 07/14/2016 12:00:00 PM Toradol [IVP] IVP 30 mg, administered: 07/14/2016 12:00:00 PM Dilaudid [IVP] IVP 1 mg, administered: 07/14/2016 1:39:00 PM The following Medications were prescribed to the patient: Zofran (orally disintegrating tablets) 4 mg: take 1-2 orally every 8 hours as needed for nausea and vomiting. Dispense ten (10). No refill. Substitution is permissible. -- Ahmet Pak DO Oxycodone/APAP 5 mg/325 mg: take 1 tablet orally every 6 hours as needed for pain. Dispense fifteen (15). No refills. -- Ahmet Pak DO Flomax 0.4 mg: take 1 orally every 24 hours. Dispense fifteen (15). No refills. Substitution is permissible. -- Ahmet Pak DO
== END 2016-07-14 14:15 | disposition home or self-care (01) ==
LOC: ED SRH 11:28
DX: N20.1 Calculus of ureter (principal); R74.8 Abnormal levels of other serum enzymes; F12.10 Cannabis abuse, uncomplicated; E66.09 Other obesity due to excess calories; Z68.30 Body mass index [BMI] 30.0-30.9, adult; Z87.891 Personal history of nicotine dependence; Z87.442 Personal history of urinary calculi
CPT/HCPCS: 90004; 90100; 91295; 92760; 92761; 92762; 92763; 92764; 92765; 92766; 92767